=== PATIENT | female | born 1985 | race African-American/Black ===

== ENCOUNTER 2018-06-13 20:25 | Emergency (ER) | payer SELFPAY ==
[2018-06-13] MEDS ORDERED: ONDANSETRON HCL INJ/PF 4 MG/2 ML SDV IV ONE (21:38)
[2018-06-13] MEDS ORDERED: NORMAL SALINE 1000 ML 1,000 ML IV ONE (21:38)
--- NOTE | 2018-06-13 21:42 | ER Document Report ---
ED Medical Screen (RME) - General Chief Complaint: Abdominal Pain Stated Complaint: NAUSEA,TINGLING, ABDOMINAL PAINS Time Seen by Provider: 06/13/18 21:37 Notes: Patient is a 33-year-old female presenting to the emergency department complaining of vomiting over 10 times today. Patient denies any blood to emesis. Patient does admit to one episode of diarrhea also without blood. Patient denies any fever, URI symptoms or headache. Patient also denies any dysuria. Patient states she is currently on her menstrual cycle. Patient does also admit to some green tinged vaginal discharge. Patient states vaginal discharge is intermittent and is not malodorous and does not it. Patient is requesting testing for sexually transmitted diseases. Patient states she has generalized abdominal pain all 4 quadrants. Past medical history: Migraines Medications: None Allergies: Zomig Surgical history: Tubal ligation Physical exam: Generalized abdominal pain all 4 quadrants. Patient actively vomiting bile in the emergency room. Patient writhing around in chair. Bilateral CVA tenderness. Patient is actively hyperventilating although heart rate is only 80 currently. I have greeted and performed a rapid initial assessment of this patient. A comprehensive ED assessment and evaluation of the patient, analysis of test results and completion of the medical decision making process will be conducted by additional ED providers. TRAVEL OUTSIDE OF THE [place] IN LAST 30 DAYS: No - Related Data Allergies/Adverse Reactions: zolmitriptan [From Zomig] Allergy (Unknown, Verified 03/12/12 07:20) Past Medical History Past Surgical History: Reports: Hx Tonsillectomy, Hx Tubal Ligation - Immunizations Hx Diphtheria, Pertussis, Tetanus Vaccination: Yes Physical Exam - Vital signs Vitals: Temp Pulse Resp BP Pulse Ox 97.6 F 71 28 H 113/66 100 06/13/18 20:26 06/13/18 20:26 06/13/18 20:26 06/13/18 20:26 06/13/18 20:26 Course - Vital Signs Vital signs: Temp Pulse Resp BP Pulse Ox 97.6 F 71 28 H 113/66 100 06/13/18 20:26 06/13/18 20:26 06/13/18 20:26 06/13/18 20:26 06/13/18 20:26 Doctor's Discharge - Discharge Referrals: LOCALMD,NO [Primary Care Provider] - Follow up as needed
[2018-06-13 21:45] LABS: ABSOLUTE LYMPHOCYTES (AUTO) 0.8 10^3/uL (0.5-4.7); ABSOLUTE MONOCYTES (AUTO) 0.3 10^3/uL (0.1-1.4); ABSOLUTE NEUT (AUTO) 8.7 10^3/uL (1.7-8.2); BASOPHILS % (AUTO) 0.3 % (0-2); HEMATOCRIT 38.1 % (36.0-47.0); HEMOGLOBIN 13.1 g/dL (12.0-15.5); LYMPHOCYTES % (AUTO) 8.5 % (13-45); MEAN CORPUSCULAR HEMOGLOBIN 32.9 pg (27.0-33.4); MEAN CORPUSCULAR HGB CONC 34.4 g/dL (32.0-36.0); MEAN CORPUSCULAR VOLUME 96 fl (80-97); PLATELET COUNT 228 10^3/uL (150-450); RED BLOOD COUNT 3.99 10^6/uL (3.72-5.28); RED CELL DISTRIBUTION WIDTH 13.8 % (11.5-14.0); SEGMENTED NEUTROPHILS % (AUTO) 88.2 % (42-78); TOTAL CELLS COUNTED % (AUTO) 100 %; WHITE BLOOD COUNT 9.9 10^3/uL (4.0-10.5)
[2018-06-13 21:47] LABS: APPEARANCE,URINE SLIGHTLY-CLOUDY; BILIRUBIN,URINE NEGATIVE (NEGATIVE); COLOR,URINE YELLOW; GLUCOSE, URINE NEGATIVE (NEGATIVE); KETONES,URINE 20 mg/dL (NEGATIVE); LEUKOCYTE ESTERASE,URINE NEGATIVE (NEGATIVE); NITRITE,URINE NEGATIVE (NEGATIVE); PROTEIN,URINE >=500 mg/dL (NEGATIVE); URINE SPECIFIC GRAVITY 1.016; UROBILINOGEN,URINE NEGATIVE mg/dL (<2.0)
[2018-06-13 21:59] LABS: ALANINE AMINOTRANSFERASE 7 U/L (9-52); ALKALINE PHOSPHATASE 52 U/L (38-126); ANION GAP 17 (5-19); ASPARTATE AMINO TRANSFERASE 33 U/L (14-36); BILIRUBIN,DIRECT 0.2 mg/dL (0.0-0.4); BILIRUBIN,TOTAL 0.9 mg/dL (0.2-1.3); BLOOD UREA NITROGEN 12 mg/dL (7-20); CALCIUM 10.2 mg/dL (8.4-10.2); CARBON DIOXIDE 22 mmol/L (22-30); CHLORIDE 106 mmol/L (98-107); GLUCOSE 161 mg/dL (75-110); LIPASE 32.1 U/L (23-300); POTASSIUM 3.8 mmol/L (3.6-5.0); SODIUM 144.6 mmol/L (137-145); TOTAL PROTEIN 8.3 g/dL (6.3-8.2)
[2018-06-13] MEDS ORDERED: LORAZEPAM INJ 2 MG/1 ML VIAL IV ONE (23:48)
[2018-06-14] MEDS ORDERED: PROCHLORPERAZINE EDISYLATE INJ 10 MG/2 ML VIAL IV ONE (00:23)
[2018-06-14] MEDS ORDERED: NORMAL SALINE 1000 ML 1,000 ML IV ONE (00:23)
[2018-06-14] MEDS ORDERED: FAMOTIDINE 20 MG TABLET PO ONE (00:24)
--- NOTE | 2018-06-14 00:30 | ER Document Report ---
ED General - General Chief Complaint: Abdominal Pain Stated Complaint: NAUSEA,TINGLING, ABDOMINAL PAINS Time Seen by Provider: 06/13/18 21:37 Mode of Arrival: Ambulatory Information source: Patient TRAVEL OUTSIDE OF THE [place] IN LAST 30 DAYS: No - HPI Notes: Patient is a 33-year-old female presents to the emergency department with report of crampy abdominal pain mainly in epigastric region with 10 episodes of vomiting without any obvious blood and one episode of diarrhea. 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 She is currently on her menstrual cycle. She states she may have had a greenish vaginal discharge previously and requests STD testing. She denies any significant fever or chills or cough or congestion. No recent antibiotics. The patient reports exposures to others at work with recent vomiting and diarrhea. She works in fast food. The patient reports her abdominal pain is crampy and intermittent, somewhat relieved by vomiting. - Related Data Allergies/Adverse Reactions: zolmitriptan [From Zomig] Allergy (Unknown, Verified 03/12/12 07:20) Past Medical History - General Information source: Patient - Social History Smoking Status: Never Smoker Chew tobacco use (# tins/day): No Frequency of alcohol use: Occasional Drug Abuse: None Family History: None Patient has suicidal ideation: No Patient has homicidal ideation: No Renal/ Medical History: Denies: Hx Peritoneal Dialysis Past Surgical History: Reports: Hx Tonsillectomy, Hx Tubal Ligation - Immunizations Hx Diphtheria, Pertussis, Tetanus Vaccination: Yes Review of Systems - Review of Systems -: Yes All other systems reviewed and negative Physical Exam - Vital signs Vitals: Temp Pulse Resp BP Pulse Ox 97.6 F 71 28 H 113/66 100 06/13/18 20:26 06/13/18 20:26 06/13/18 20:26 06/13/18 20:26 06/13/18 20:26 - Notes Notes: PHYSICAL EXAMINATION: GENERAL: Well-appearing, well-nourished and in no acute distress. HEAD: Atraumatic, normocephalic. EYES: Pupils equal round and reactive to light, extraocular movements intact, conjunctiva are normal. ENT: Nares patent, oropharynx clear without exudates. Dry mucous membranes. NECK: Normal range of motion, supple without lymphadenopathy LUNGS: Breath sounds clear to auscultation bilaterally and equal. No wheezes rales or rhonchi. HEART: Regular rate and rhythm without murmurs ABDOMEN: Soft, nondistended abdomen. No guarding, no rebound. No masses appreciated. Midepigastric tenderness. Negative Guzman's. No obvious hepatosplenomegaly. Female : Normal external female genitalia. No cervical motion tenderness. No adnexal mass or tenderness. The cervix is benign, but she does have menstrual bleeding which appears normal otherwise. There is no odor noted. Musculoskeletal: Normal range of motion, no pitting or edema. No cyanosis. NEUROLOGICAL: Cranial nerves grossly intact. Normal speech, normal gait. Normal sensory, motor exams PSYCH: Normal mood, normal affect. SKIN: Warm, Dry, normal turgor, no rashes or lesions noted. Course - Re-evaluation Re-evalutation: 06/14/18 00:28 Patient was bolused with IV fluids 2 L. She was given IV Zofran and Ativan and Compazine and Pepcid with some relief of her discomfort. Lab work showed no evidence for renal insufficiency or significant electrolyte imbalance or GI bleed. No obvious evidence for UTI, but the patient did have ketones consistent with dehydration. No evidence for . No clinical suggestion for PID. 06/14/18 02:03 Patient was able to tolerate p.o. fluids. Repeat abdominal exam was nontender. Mild bacterial vaginosis was noted, and the patient will be treated with Flagyl and will avoid alcohol. No evidence for diabetes. GC / chlam pending. 06/14/18 02:04 - Vital Signs Vital signs: Temp Pulse Resp BP Pulse Ox 97.6 F 71 28 H 113/66 100 06/13/18 20:26 06/13/18 20:26 06/13/18 20:26 06/13/18 20:26 06/13/18 20:26 - Laboratory Result Diagrams: 06/13/18 21:15 06/13/18 21:15 Laboratory results interpreted by me: 06/13/18 06/13/18 06/13/18 21:15 21:15 21:15 Seg Neutrophils % 88.2 H Lymphocytes % 8.5 L Absolute Neutrophils 8.7 H Glucose 161 H ALT 7 L Total Protein 8.3 H Urine Protein >=500 H Urine Ketones 20 H Discharge - Discharge Clinical Impression: Dehydration, Menorrhagia with irregular cycle, Bacterial vaginosis Vomiting Qualifiers: Vomiting type: unspecified Vomiting Intractability: non-intractable Nausea presence: with nausea Qualified Code(s): R11.2 - Nausea with vomiting, unspecified Diarrhea Qualifiers: Diarrhea type: unspecified type Qualified Code(s): R19.7 - Diarrhea, unspecified Condition: Stable Disposition: HOME, SELF-CARE Instructions: Viral Syndrome ([facility]), Intravenous (IV) Fluids ([facility]), Antinausea Medication ([facility]), Vaginosis, Bacterial ([facility]), Vomiting ([facility]), Family Physicians / Practices Additional Instructions: Drink plenty of fluids. Charles diet and progress gradually. No alcohol while taking Flagyl antibiotic. Followup with office services manager regarding your irregular periods. Prescriptions: Ondansetron [Zofran Odt 4 mg Tablet] 1 tab PO Q8HP PRN #10 tab.rapdis PRN Reason: For Nausea/Vomiting Metronidazole [Flagyl 500 mg Tablet] 500 mg PO BID #14 tablet Ranitidine HCl 150 mg PO BID #30 tablet Forms: Return to Work Referrals: MILLICENT YAN MD [ACTIVE STAFF] - Follow up as needed
[2018-06-14 00:34] LABS: BACTERIA (WET MOUNT) 3+ BACTERIA SEEN; RBCS (WET MOUNT) 3+ RBCS SEEN; T.VAGINALIS (WET MOUNT) NO TRICHOMONAS SEEN; WBCS (WET MOUNT) RARE WBCS SEEN; YEAST (WET MOUNT) NO YEAST SEEN
[2018-06-14 01:59] LABS: CHLAM PCR NOT DETECTED (NOT DETECT); GON PCR NOT DETECTED (NOT DETECT)
[2018-06-14 02:02] VITALS: BP 101/51
[2018-06-14] MEDS ORDERED: ONDANSETRON ODT 4 MG TAB (6 TAB/ER DISP) PO PRN (02:04)
== END 2018-06-14 02:23 | disposition home or self-care (01) ==
LOC: ER 20:25
DX: N76.0 Acute vaginitis (principal); B96.89 Other specified bacterial agents as the cause of diseases classified elsewhere; N92.0 Excessive and frequent menstruation with regular cycle; E86.0 Dehydration; R11.2 Nausea with vomiting, unspecified; R19.7 Diarrhea, unspecified; R10.9 Unspecified abdominal pain
CPT/HCPCS: 99284; 96361; 96374; 96375; 36415; 87210; 83690; 84703; 85025; 81025; 80053; 81001; 87491; 87591; J2060; J0780; J2405; J7030 ×2